=== PATIENT | female | born 1990 ===

== ENCOUNTER 2016-11-03 12:24 | Inpatient (IN) ==
--- NOTE | 2016-11-03 14:19 | Ultrasound Report ---
Biophysical profile. Indication: Small for gestational age. There is a single intrauterine gestation in a vertex presentation. The placenta is located anterior. The heart rate is 148 bpm. The YUSRA is 8.8 cm. breathing-2 Gross body movement-2 tone-2 Qualitative amniotic fluid volume-2 Score: 8/8, low risk for chronic asphyxia. The Ultrasound images were captured and stored. PROCEDURE INTERPRETED AT [facility] DEPARTMENT OF RADIOLOGY Final Report Signed by: Dr. Luzmaria Bautista
--- NOTE | 2016-11-03 15:45 | Ultrasound Report ---
Exam:US OB >= 14 weeks fetus Date:11/03/2016 2:23 PM Comparison: No previous obstetrical ultrasound available at this time Indication: Small for gestational age Findings: There is a single intrauterine fetus in vertex presentation with a heart rate of 141 bpm. The placenta is anterior without previa. The placenta is grade 3. The YUSRA measures a normal 8.3 cm. The maternal cervix measures 2.6 cm length and is grossly closed. Four-chamber heart view and stomach bubble are unremarkable. spine, kidneys, bladder, and cord insertion site are not optimally seen because of positioning and patient body habitus. There is a three-vessel umbilical cord. Intracranial measurements are not submitted. No masses of the maternal myometrium are identified. The maternal ovaries were not seen because of gestation size. The fetus measures less than the 3 percentile based on EFW. The femur length to BPD ratio is abnormally decreased at 62.88. The femur length to abdominal circumference ratio is abnormally decreased at 17.27. The femur length to head circumference ratio is decreased at 17.06. Impression: Single intrauterine fetus in vertex presentation with an ultrasound gestational age of 33 weeks 4 days +/- 16 days, CHAPARRITA December 18, 2016, and EFW 2211 g +/- 332 g. motion and cardiac activity are noted during real-time sonography. The patient measures less than the 3 percentile based on EFW. Biometry BPD:86.2 mm 34w 5d HC:317.6 mm 35w 5d AC:313.8 mm 35w 2d FL: 54.2 mm 28w 5d EFW:2211 +/- 332 g 33w 2d Amniotic Fluid Index:8.3 cm YUSRA: Q1 =1.9 cm YUSRA: Q2 =1.4 cm YUSRA: Q3 =1.3 cm YUSRA: Q4 =3.7 cm The Ultrasound images were captured and stored. PROCEDURE INTERPRETED AT [facility] DEPARTMENT OF RADIOLOGY Final Report Signed by: Dr. Carmel Trinidad
[2016-11-03 17:17] LABS: Basophils % 0.1 % (0.0-0.8); Eosinophils # 0.1 10*3/uL (0.0-0.87); Eosinophils % 0.6 % (0.00-10.9); Hematocrit 33.6 VOL% (35.7-47.0); Hemoglobin 11.3 GM/DL (12.0-16.0); Immature Granulocytes % 0.2 %; Immature Granulocytes Absolute 0.02 #; Lymphocytes # 1.6 10*3/uL (1.4-4.0); Lymphocytes % 18.9 % (21.3-54.2); Mean Corpuscular HGB Conc 33.6 GM/DL (32-36); Mean Corpuscular Hemoglobin 28 PG (27-34); Mean Platelet Volume 10.8 FL (9.6-12.0); Monocytes # 0.8 10*3/uL (0.11-0.8); Monocytes % 9.1 % (1.7-12.7); Neutrophils # 5.9 10*3/uL (1.4-7.4); Neutrophils % 71.1 % (38.7-73.9); Platelet Count 203 T/CUMM (130-400); Red Cell Distribution Width 14.4 % (9.3-17.3); White Blood Count 8.2 T/CUMM (4-12)
[2016-11-03 17:49] LABS: Albumin 2.6 G/DL (3.4-5.0); Bilirubin,Total 0.5 MG/DL (0.2-1.0); Calcium 8.3 MG/DL (8.5-10.1); Osmolality,Calculated 273.5 MOS/KG (273-304); Total Protein 6.9 G/DL (6.4-8.3)
[2016-11-03 18:15] LABS: Apearance,Urine CLEAR (Clear); Bilirubin,Urine Negative (Negative); Blood, Urine Negative (Negative); Glucose,Urine (UA) Negative (Negative); Ketones,Urine Negative (Negative); Nitrite,Urine Negative (Negative); Protein,Urine Negative; RBC,Urine 2 /HPF (0-4); Squamous Epithelial Cell,Urine Occasional /HPF (0-10); Urine Color Straw (Yellow); Urine Specific Gravity 1.004 (1.001-1.035); Urine Urobilinogen < 2.0 EU/DL (0.2-1.0); WBC,Urine 11 /HPF (0-6)
--- NOTE | 2016-11-03 18:30 | OB/GYN History & Physical ---
History of Present Illness Chief complaint: 37 weeks, IUGR History of present illness: Ms. Arriaza is a 26 year old female 2 para 1 early ultrasound demonstrated an EDC of 12/01/2016. Patient's had serial ultrasounds which have demonstrated decreasing fundal height. Ultrasound that was obtained today demonstrated a an estimated gestational age of 33 weeks and 4 days which is 3 weeks behind her estimated gestational age. There is also noted to be a placenta that demonstrated to be a grade 3. In light of these findings this patient be admitted for intrauterine growth retardation and induction in the a.m. Risks benefits were thoroughly discussed with this patient and her family. Home Medications Medication Instructions Recorded Confirmed Type Ferrous Sulfate Tab [Feosol 1 tablet PO DAILY 11/03/16 11/03/16 History Original Tab] No122/Iron/Folic Acid 1 tablet PO DAILY 11/03/16 11/03/16 History [ Multi Tablet] Allergies Allergy/AdvReac Type Severity Reaction Status Date / Time No Known Allergies Allergy Verified 11/03/16 12:44 Medical,Surgical,& Family Hx - Medical History Neurology: No history of: Seizures - Family History Family History: Reports;: Family Diabetes (MOM ET MATERNAL GR DAD), Family Hypertension (MAT GR DAD) - Social History Smoking Status: Never smoker Frequency of Alcohol Use: None Type of Drug Use: 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: Vital Signs Temp Pulse Resp BP Pulse Ox 11/03/16 16:30 98.1 F 76 20 118/84 98 - Head Head exam: Present: normal inspection - Eye Eye exam: Present: EOMI Pupils: Present: SERENITY - ENT ENT exam: Present: normal exam - Neck Neck exam: Present: normal inspection - Respiratory Respiratory exam: Present: clear to auscultation bilaterally - Breast Breasts: as per HPI Menstruation: as per HPI - Cardiovascular Cardiovascular exam: Present: regular rate and rhythm - GI/Abdominal GI/Abdominal exam: Present: other (Fundal height is measuring approximately 33- 34 cm,) - Extremities Exam Extremities exam: Present: normal inspection - Back Exam Back exam: Present: normal inspection - Neurological Exam Neurological exam: Present: alert - Psychiatric Psychiatric exam: Present: normal affect - Skin Skin exam: Present: normal color Assessment and Plan (1) IUGR (intrauterine growth restriction) Status: Acute Assessment and plan: Intrauterine growth retardation at 37 weeks. Patient is a lagging approximately 3 cm behind her estimated gestational age. We will plan on initiating on labor in the morning initially will start with IV Pitocin and then plan on initiating with prostaglandin gel risks and benefits were thoroughly discussed with this patient she is in full agreement Current Visit: Yes Results - Labs CBC & BMP: 11/03/16 17:05 11/03/16 17:05
[2016-11-03 18:40] LABS: HIV Antigen/Antibody Result Nonreactive (Nonreactive); Hepatitis B Surface Ag Quant < 0.10 Index; Hepatitis B Surface Ag Result Negative (Negative)
--- NOTE | 2016-11-04 09:24 | Event Note ---
HPI: Ms. Arriaza is a 26-year-old female who presented for evaluation of status. Ultrasound demonstrated IUGR. The patient has been admitted for induction of labor due to IUGR. She was received Prostin per protocol. Currently her cervix is 1 cm and thick. The risk and benefits of been thoroughly discussed with this patient and significant other, plan of care has been discussed with Dr. Henry and all parties are in agreement plan.
[2016-11-04] MEDS ORDERED: ONDANSETRON 4 MG/2 ML VIAL IV PRN (09:26)
[2016-11-04] MEDS ORDERED: DINOPROSTONE VAG GEL 10 MG SYRINGE VAG ONE ×3 (09:41→17:08)
[2016-11-04] MEDS: LACTATED RINGERS 1,000 ML IV SCH ×2 (09:46→16:06)
[2016-11-04] MEDS ORDERED: MEPERIDINE 50 MG/1 ML VIAL IV PRN (09:59)
[2016-11-04] MEDS: OXYTOCIN/LR 20 UNIT/1,000 ML BAG IV SCH (14:46)
[2016-11-04] MEDS ORDERED: AMPICILLIN INJ 2,000 MG in SODIUM CHLORIDE 0.9% 100 ML IV ONE (15:05)
[2016-11-04] MEDS: AMPICILLIN INJ 1,000 MG in SODIUM CHLORIDE 0.9% 100 ML IV SCH ×2 (19:41→23:40)
[2016-11-05 00:07] LABS: Barbiturates Screen,Urine Negative (Negative); Benzodiazepines Screen,Urine Negative (Negative); Opiate Screen,Urine Negative (Negative); Phencyclidine Screen,Urine Negative (Negative)
[2016-11-05 00:18] LABS: Cannabinoid Screen,Urine Negative (Negative)
[2016-11-05] MEDS: AMPICILLIN INJ 1,000 MG in SODIUM CHLORIDE 0.9% 100 ML IV SCH ×3 (03:30→11:30)
[2016-11-05] MEDS: LACTATED RINGERS 1,000 ML IV SCH (07:26)
[2016-11-05] MEDS ORDERED: FAMOTIDINE 20 MG/2 ML VIAL IV ONE (07:54)
[2016-11-05] MEDS ORDERED: fentaNYL 2 MCG/ROPIV 0.2% EPID 150 ML EPIDURAL SCH (07:54)
[2016-11-05] MEDS ORDERED: hydrOXYzine HCL 25 MG/1 ML VIAL IM PRN (07:54)
[2016-11-05] MEDS ORDERED: PROMETHAZINE 25 MG/1 ML VIAL IM ONE (07:54)
[2016-11-05] MEDS ORDERED: CITRIC ACID/SODIUM CITRATE 30 ML UDCUP PO ONE (07:54)
[2016-11-05] MEDS ORDERED: diphenhydrAMINE 50 MG/1 ML VIAL IV PRN ×2 (07:54)
[2016-11-05] MEDS ORDERED: ONDANSETRON 4 MG/2 ML VIAL IV ONE (07:54)
[2016-11-05] MEDS ORDERED: ePHEDrine 50 MG/ML AMP IV PRN (07:54)
--- NOTE | 2016-11-05 09:14 | Ultrasound Report ---
Limited OB ultrasound. Indication: Indication: Confirm presentation. There is a single intrauterine gestation in a cephalic presentation. The placenta is located anterior. The amniotic fluid volume is normal. The heart rate is 130 bpm. Impression: Cephalic presentation. The Ultrasound images were captured and stored. PROCEDURE INTERPRETED AT [facility] DEPARTMENT OF RADIOLOGY Final Report Signed by: Dr. Luzmaria Bautista
[2016-11-05] MEDS ORDERED: BUTORPHANOL 1 MG/ML VIAL ONE (09:38)
[2016-11-05] MEDS ORDERED: BUTORPHANOL 1 MG/ML VIAL IV PRN (09:41)
--- NOTE | 2016-11-05 13:38 | Event Note ---
Delivery note Stage I of labor Artificial rupture membranes on the Patient admitted on the with a diagnosis of IUGR at 37 weeks She received prostaglandin gel on the twice without significant dilatation of her cervix. IV Pitocin Intrauterine pressure catheter Epidural anesthetic heart tones category 1 Stage II Delivery of a female at 1208 Cord blood and cord gas obtained Blood loss 200 cc nurses present in attendance Stage III Placenta delivered without any problems 3 cord vessels Blood loss is 200 cc nursery was present at the time of delivery Mother stable
[2016-11-05] MEDS: OXYTOCIN/LR 20 UNIT/1,000 ML BAG IV SCH (16:21)
[2016-11-05] MEDS: DOCUSATE SODIUM 100 MG CAPSULE PO SCH (20:53)
[2016-11-05] MEDS: IBUPROFEN 800 MG TABLET PO PRN (20:53)
[2016-11-06 06:48] LABS: Basophils % 0.2 % (0.0-0.8); Eosinophils # 0.1 10*3/uL (0.0-0.87); Eosinophils % 0.9 % (0.00-10.9); Hematocrit 29.9 VOL% (35.7-47.0); Hemoglobin 9.8 GM/DL (12.0-16.0); Immature Granulocytes % 0.3 %; Immature Granulocytes Absolute 0.03 #; Lymphocytes # 1.8 10*3/uL (1.4-4.0); Lymphocytes % 20.4 % (21.3-54.2); Mean Corpuscular HGB Conc 32.8 GM/DL (32-36); Mean Corpuscular Hemoglobin 28 PG (27-34); Mean Corpuscular Volume 84.2 FL (87-102); Mean Platelet Volume 10.2 FL (9.6-12.0); Monocytes # 0.9 10*3/uL (0.11-0.8); Monocytes % 10.1 % (1.7-12.7); Neutrophils # 6.1 10*3/uL (1.4-7.4); Neutrophils % 68.1 % (38.7-73.9); Platelet Count 173 T/CUMM (130-400); Red Blood Count 3.55 MC/CUMM (3.8-5.5); Red Cell Distribution Width 14.3 % (9.3-17.3); White Blood Count 8.9 T/CUMM (4-12)
--- NOTE | 2016-11-06 08:34 | OB/GYN Progress Note ---
Assessment and Plan (1) Vaginal delivery Status: Acute Assessment and plan: Initiate routine orders. 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 Bonding well with infant. 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 - Constitutional Vitals: Vital Signs Temp Pulse Resp BP Pulse Ox 11/06/16 07:56 74 20 11/06/16 07:33 98.1 F 74 20 109/72 98 11/06/16 06:59 18 11/06/16 06:00 18 11/06/16 05:00 16 11/06/16 03:30 97.1 F L 70 20 89/61 96 11/06/16 03:00 18 11/06/16 02:00 20 11/05/16 23:40 98.1 F 78 24 110/72 98 11/05/16 19:20 97.7 F 94 H 22 106/60 98 11/05/16 17:30 98.0 F 84 20 122/70 98 11/05/16 16:30 98.0 F 80 20 122/77 98 11/05/16 15:30 97.8 F 77 20 119/78 98 11/05/16 15:00 97.9 F 77 20 120/79 98 11/05/16 14:30 97.9 F 81 20 115/78 98 General appearance: no acute distress - Antepartum / Post Post Exam Breast: bilateral: normal Abdomen obstetrics: Present: bowel sounds normal Vagina: Present: normal moisture, discharge (Light lochia rubra) Uterus exam: Present: enlarged (Fundus firm and midline) Anus/Rectum: Present: normal perianal skin - Head Head exam: Present: normal inspection - Respiratory Respiratory exam: Present: clear to auscultation bilaterally - Cardiovascular Cardiovascular exam: Present: regular rate and rhythm - GI/Abdominal GI/Abdominal exam: Present: normal bowel sounds - Extremities Exam Extremities exam: Present: normal inspection - Neurological Exam Neurological exam: Present: alert, oriented X3 - Psychiatric Psychiatric exam: Present: normal affect, normal mood - Skin Skin exam: Present: normal color, warm Results - Labs CBC & BMP: 11/06/16 06:35 11/03/16 17:05
[2016-11-06] MEDS: FERROUS SULFATE 325 MG TABLET PO SCH ×2 (08:43→21:25)
[2016-11-06] MEDS: DOCUSATE SODIUM 100 MG CAPSULE PO SCH ×2 (08:43→21:25)
--- NOTE | 2016-11-07 06:49 | Anesthesia Post-Op ---
Anesthesia Post OP - Post Ansesthetic Evaluation Patient seen in post op: Yes Resp: within normal limits CV: within normal limits Mental: within normal limits Temp: within normal limits [id number]: within normal limits Nausea and Vomiting: within normal limits Pain: within normal limits
[2016-11-07 07:23] VITALS: BP 106/69
[2016-11-07] MEDS: DOCUSATE SODIUM 100 MG CAPSULE PO SCH (09:01)
[2016-11-07] MEDS: FERROUS SULFATE 325 MG TABLET PO SCH (09:01)
[2016-11-07] MEDS: IBUPROFEN 800 MG TABLET PO PRN (09:01)
--- NOTE | 2016-11-07 10:27 | Discharge Summary ---
Hospital Course - Hospital Course Hospital Course: Ms. Arriaza presented to the labor department for elective induction of labor due to term . She subsequently delivered a viable with no complications. She has followed a normal course and she has done well. Her bleeding is minimal with no odor. Her vital signs and lab values are stable. Her perineum is intact with no edema. She is bonding well with her . Contraception options has been discussed and the patient will decide on a method at her visit. She will be discharged home with prescriptions for pain and a follow-up appointment in our office. Diagnosis - Discharge Diagnosis (1) Vaginal delivery Status: Acute Specialty Discharge - Follow Up or Referrals Follow up with: María Elena Henry MD [Physician] - (Follow-up in 6 weeks. ) Discharge Plan - Discharge Data Disposition: Disch To Home/Self Care Condition at Discharge: Stable Discharge Diet: advance to your usual diet, regular diet Activity: resume usual activities as tolerated Hygiene: no restrictions Weight Bearing at Discharge: weight bear as tolerated Driving: no restrictions Contact your physician if you experience:: fever over 101, pain uncontrolled by pain medications - Discharge Medications New Ferrous Sulfate Tab [Feosol Original Tab] 325 mg PO BID #60 tablet HYDROcodone/ACETAMIN 5-325 [Daggett 5-325] 2 tablet PO Q6H PRN #30 tablet PRN Reason: Pain Moderate (4-7) Ibuprofen Tab [Motrin Tab] 800 mg PO Q8H PRN #30 tablet PRN Reason: Pain Clindamycin Cap [Cleocin Cap] 300 mg PO Q8HR #30 capsule No Action No122/Iron/Folic Acid [ Multi Tablet] 1 tablet PO DAILY Ferrous Sulfate Tab [Feosol Original Tab] 1 tablet PO DAILY - Follow Up or Referral - Forms/Instructions Exam - Constitutional Vitals: Period Temp Pulse Resp BP Sys/Rizvi Pulse Ox Last 24 Hr 97.7 F-99.3 F 61-77 18-20 97-115/56-73 97-99 General appearance: no acute distress - Respiratory Respiratory exam: Present: clear to auscultation bilaterally - Cardiovascular Cardiovascular exam: Present: regular rate and rhythm - GI/Abdominal GI/Abdominal exam: Present: normal bowel sounds - Extremities Exam Extremities exam: Present: normal inspection - Neurological Exam Neurological exam: Present: alert, oriented X3 - Psychiatric Psychiatric exam: Present: normal affect, normal mood - Skin Skin exam: Present: normal color, warm DS: Provider Date of admission: 11/04/16 09:26 Primary care physician: Nella Xie MD Attending physician on admission: María Elena Henry MD Consults: 11/04/16 09:26 Consult to Anesthesiology [CONS] Routine Consulting Provider: Reason for Anesthesiology: Epidural Consult Comment: Epidural for pain managment Discharging clinician: Monse Bear CNM Expected date of discharge: 11/07/16
--- NOTE | 2016-11-07 18:21 | Pathology Report from [facility] ---
[employer] ACCESSION # : [id number] PATIENT NAME : Sheryl Arriaza ORDERING DR : MAGALYS FLEMING MD CLINICAL HX: IUP @ 37.2 weeks, spontaneous vaginal delivery, IUGR, grade 3 placenta POST-OP DX: sSame SPECIMEN INFO: Placenta GROSS DESCRIPTION: The specimen is received fresh labeled SHERYL ARRIAZA consists of a 358.0 gm placenta which measures 17.0 x 16.0 x 2.3 cm. The membranes are rowe and translucent. The umbilical cord measures 17.5 cm, contains three vessels and is eccentrically inserted. The surface is blue -verma and intact. The maternal surface displays intact hemorrhagic cotyledons. No abnormalities grossly appreciated upon sectioning. Sections submitted: (A ) membranes and cord, (B) and maternal surfaces. DIAGNOSIS FOR SHERYL ARRIAZA: PLACENTA, MEMBRANES, UMBILICAL CORD: Focal placental infarction with dystrophic calcification, moderate intravillous blood. Tri-vessel umbilical cord, eccentrically inserted. Membranes with acute and chronic inflammation. COLLECTED DATE: 11/06/2016 [facility] REPORT DATE: 11/07/2016 ELECTRONICALLY SIGNED BY: Esther Rosales M.D. 11/07/2016 - 10:18:00 ANCELMO
== END 2016-11-07 12:00 | disposition home or self-care (01) | DRG 560 ==
LOC: N.LDOUT 12:24 → N.LD 12:30 → N.OB 16:32 → N.LD 11-04 09:23 → N.OB 11-05 14:00
PROVIDERS: ADMIT Obstetrics & Gynecology; ATTEND Obstetrics & Gynecology

== ENCOUNTER 2018-02-22 20:22 | Inpatient (IN) ==
[2018-02-22] MEDS ORDERED: BUTORPHANOL 2 MG/ML VIAL IV PRN (20:47)
[2018-02-22] MEDS ORDERED: MEPERIDINE 50 MG/1 ML VIAL IV PRN (20:47)
[2018-02-22] MEDS ORDERED: ONDANSETRON 4 MG/2 ML VIAL IV PRN (20:47)
[2018-02-22] MEDS: LACTATED RINGERS 1,000 ML IV SCH ×2 (21:04→22:30)
[2018-02-22 21:14] LABS: Basophils % 0.3 % (0.0-0.8); Eosinophils # 0.1 10*3/uL (0.0-0.87); Eosinophils % 0.9 % (0.00-10.9); Hematocrit 32.5 VOL% (35.7-47.0); Hemoglobin 9.9 GM/DL (12.0-16.0); Immature Granulocytes % 0.5 %; Immature Granulocytes Absolute 0.05 #; Lymphocytes # 1.4 10*3/uL (1.4-4.0); Lymphocytes % 13.9 % (21.3-54.2); Mean Corpuscular HGB Conc 30.5 GM/DL (32-36); Mean Corpuscular Hemoglobin 24 PG (27-34); Mean Corpuscular Volume 78.7 FL (87-102); Mean Platelet Volume 10.5 FL (9.6-12.0); Monocytes # 0.8 10*3/uL (0.11-0.8); Monocytes % 7.9 % (1.7-12.7); Neutrophils # 7.7 10*3/uL (1.4-7.4); Neutrophils % 76.5 % (38.7-73.9); Platelet Count 218 T/CUMM (130-400); Red Blood Count 4.13 MC/CUMM (3.8-5.5)
[2018-02-22] MEDS ORDERED: CLINDAMYCIN INJ 900 MG in PREMIX 1 EACH IV SCH (21:30)
[2018-02-22] MEDS ORDERED: FAMOTIDINE 20 MG/2 ML VIAL IV ONE (21:33)
[2018-02-22] MEDS ORDERED: CITRIC ACID/SODIUM CITRATE 30 ML UDCUP PO ONE (21:33)
[2018-02-22 21:36] LABS: Alanine Aminotransferase 11 U/L (13-56); Albumin 2.4 G/DL (3.4-5.0); Alkaline Phosphatase 320 U/L (45-117); Aspartate Amino Transferase 18 U/L (0-37); Bilirubin,Total < 0.39 MG/DL (0.2-1.0); Blood Urea Nitrogen 10 MG/DL (7-18); Calcium 8.1 MG/DL (8.5-10.1); Glucose 83 MG/DL (74-106); Osmolality,Calculated 276.4 MOS/KG (273-304); Potassium 3.6 MMOL/L (3.5-5.1); Sodium 140 MMOL/L (136-145); Total Protein 7.6 G/DL (6.4-8.3)
[2018-02-22] MEDS ORDERED: ePHEDrine 50 MG/ML AMP ONE (21:40)
[2018-02-22] MEDS ORDERED: fentaNYL 2 MCG/ROPIV 0.2% EPID 100 ML EPIDURAL SCH (22:00)
[2018-02-22 22:05] LABS: Apearance,Urine Slightly Hazy (Clear); Bacteria,Urine Occasional /HPF (Few); Bilirubin,Urine Negative (Negative); Blood, Urine Large mg/dL (Negative); Glucose,Urine (UA) Negative (Negative); Ketones,Urine Negative (Negative); Mucus,Urine Occasional /LPF (Occasional); Nitrite,Urine Negative (Negative); Protein,Urine Negative; RBC,Urine 2 /HPF (0-4); Squamous Epithelial Cell,Urine Occasional /HPF (0-10); Urine Color Yellow (Yellow); Urine Specific Gravity 1.009 (1.001-1.035); WBC,Urine 55 /HPF (0-6)
[2018-02-22] MEDS ORDERED: miSOPROStol 200 MCG TABLET ONE (22:22)
[2018-02-22] MEDS ORDERED: LIDOCAINE 1% 50 ML VIAL ONE (22:22)
[2018-02-22] MEDS: OXYTOCIN/LR 20 UNIT/1,000 ML BAG IV SCH (23:30)
[2018-02-23 05:56] LABS: Apearance,Urine CLEAR (Clear); Bilirubin,Urine Negative (Negative); Blood, Urine Small mg/dL (Negative); Glucose,Urine (UA) Negative (Negative); Ketones,Urine 5 mg/dL (Negative); Mucus,Urine Occasional /LPF (Occasional); Nitrite,Urine Negative (Negative); Protein,Urine Negative; RBC,Urine 4 /HPF (0-4); Squamous Epithelial Cell,Urine Occasional /HPF (0-10); Urine Color Yellow (Yellow); Urine Specific Gravity 1.013 (1.001-1.035); WBC,Urine 7 /HPF (0-6)
[2018-02-23] MEDS ORDERED: CARBOPROST TROMETHAMINE 250 MCG/ML AMP IM ONE (06:55)
[2018-02-23] MEDS ORDERED: METHYLERGONOVINE 0.2 MG/1 ML AMP ONE ×2 (06:55→07:24)
[2018-02-23] MEDS ORDERED: BISACODYL 10 MG SUPP RECTAL PRN (07:30)
[2018-02-23] MEDS ORDERED: oxyCODONE/ACETAMINOPHEN 5-325 MG TABLET PO PRN (07:30)
[2018-02-23] MEDS ORDERED: HYDROCORTISONE 2.5% RECTAL CREAM 30 GM TUBE TOP PRN (07:30)
[2018-02-23] MEDS ORDERED: WITCH HAZEL PADS 100/JAR TOP PRN (07:30)
[2018-02-23] MEDS ORDERED: ACETAMINOPHEN 325 MG TABLET PO PRN (07:30)
[2018-02-23] MEDS ORDERED: BENZOCAINE 20%/MENTHOL 0.5% SPRAY 56 GM CAN TOP PRN (07:30)
[2018-02-23] MEDS ORDERED: LANOLIN 50% CREAM 0.3 OZ TUBE TOP PRN (07:30)
[2018-02-23] MEDS ORDERED: RHO(D) IMMUNE GLOBULIN 300 MCG SYRINGE IM ONE (08:00)
[2018-02-23] MEDS ORDERED: DIPH/TET/ACEL PERT BOOSTER VACCINE 0.5 ML VIAL IM ONE (08:00)
[2018-02-23] MEDS ORDERED: MEASLES/MUMPS/RUBELLA VACCINE 0.5 ML VIAL SUBCUT ONE (08:00)
[2018-02-23] MEDS ORDERED: METHYLERGONOVINE 0.2 MG/1 ML AMP IM ONE (08:51)
[2018-02-23] MEDS: OXYTOCIN/LR 20 UNIT/1,000 ML BAG IV SCH (10:45)
[2018-02-23] MEDS: IBUPROFEN 800 MG TABLET PO PRN (16:19)
[2018-02-23] MEDS: oxyCODONE/ACETAMINOPHEN 5-325 MG TABLET PO PRN (16:20)
[2018-02-23] MEDS: DOCUSATE SODIUM 100 MG CAPSULE PO SCH (20:37)
[2018-02-24] MEDS: IBUPROFEN 800 MG TABLET PO PRN ×2 (01:58→19:17)
[2018-02-24 06:17] LABS: Basophils % 0.2 % (0.0-0.8); Eosinophils # 0.2 10*3/uL (0.0-0.87); Eosinophils % 1.4 % (0.00-10.9); Hematocrit 23.2 VOL% (35.7-47.0); Hemoglobin 6.9 GM/DL (12.0-16.0); Immature Granulocytes % 0.8 %; Lymphocytes # 2.3 10*3/uL (1.4-4.0); Lymphocytes % 17.2 % (21.3-54.2); Mean Corpuscular HGB Conc 29.7 GM/DL (32-36); Mean Corpuscular Hemoglobin 24 PG (27-34); Mean Corpuscular Volume 81.4 FL (87-102); Mean Platelet Volume 10.7 FL (9.6-12.0); Monocytes # 1.1 10*3/uL (0.11-0.8); Monocytes % 8.4 % (1.7-12.7); Neutrophils # 9.5 10*3/uL (1.4-7.4); Platelet Count 157 T/CUMM (130-400); Red Blood Count 2.85 MC/CUMM (3.8-5.5); Red Cell Distribution Width 18.1 % (9.3-17.3); White Blood Count 13.2 T/CUMM (4-12)
[2018-02-24] MEDS: FERROUS SULFATE 325 MG TABLET PO SCH ×2 (08:53→20:44)
[2018-02-24] MEDS: DOCUSATE SODIUM 100 MG CAPSULE PO SCH ×2 (08:53→20:44)
[2018-02-24] MEDS: oxyCODONE/ACETAMINOPHEN 5-325 MG TABLET PO PRN (11:13)
[2018-02-25 07:14] VITALS: BP 96/64
[2018-02-25] MEDS: DOCUSATE SODIUM 100 MG CAPSULE PO SCH (08:52)
[2018-02-25] MEDS: FERROUS SULFATE 325 MG TABLET PO SCH (08:52)
== END 2018-02-25 13:20 | disposition home or self-care (01) | DRG 560 ==
LOC: N.LDOUT 20:22 → N.LD 20:28 → N.OB 02-23 10:23
PROVIDERS: ADMIT Obstetrics & Gynecology; ATTEND Obstetrics & Gynecology

== ENCOUNTER 2019-10-01 21:40 | Observation (INO) ==
[2019-10-01] MEDS ORDERED: SODIUM CHLORIDE 0.9% 1,000 ML IV STA (22:06)
[2019-10-01 23:45] LABS: Basophils % 0.2 % (0.0-0.8); Eosinophils % 0.1 % (0.00-10.9); Hematocrit 32.8 VOL% (35.7-47.0); Immature Granulocytes % 0.3 %; Immature Granulocytes Absolute 0.04 #; Lymphocytes # 0.9 10*3/uL (1.4-4.0); Mean Corpuscular HGB Conc 33.5 GM/DL (32-36); Mean Corpuscular Volume 87.2 FL (87-102); Mean Platelet Volume 9.9 FL (9.6-12.0); Monocytes % 7.1 % (1.7-12.7); Neutrophils % 85.3 % (38.7-73.9); Platelet Count 221 T/CUMM (130-400); Red Blood Count 3.76 MC/CUMM (3.8-5.5); Red Cell Distribution Width 13.1 % (9.3-17.3)
[2019-10-02 00:02] LABS: Apearance,Urine Slightly Hazy (Clear); Bilirubin,Urine Negative (Negative); Blood, Urine Small mg/dL (Negative); Glucose,Urine (UA) Negative (Negative); Ketones,Urine 80 mg/dL (Negative); Mucus,Urine Occasional /LPF (Occasional); Nitrite,Urine Negative (Negative); Protein,Urine Negative; RBC,Urine 1 /HPF (0-4); Renal Epithelial Cells,Urine Occasional /HPF (<1); Squamous Epithelial Cell,Urine Few /HPF (0-10); Urine Color Yellow (Yellow); Urine Specific Gravity 1.017 (1.001-1.035); Urine Urobilinogen < 2.0 EU/DL (0.2-1.0); WBC,Urine 24 /HPF (0-6)
[2019-10-02 00:11] LABS: Albumin 2.7 G/DL (3.4-5.0); Bilirubin,Total 0.4 MG/DL (0.2-1.0); Osmolality,Calculated 274.5 MOS/KG (273-304); Total Protein 6.8 G/DL (6.4-8.3)
[2019-10-02] MEDS ORDERED: MEPERIDINE 50 MG/1 ML VIAL IV STA (00:49)
[2019-10-02] MEDS ORDERED: cefTRIAXone 1,000 MG in SODIUM CHLORIDE 0.9% 100 ML IV STA (00:52)
[2019-10-02] MEDS ORDERED: ACETAMINOPHEN 325 MG TABLET PO PRN (00:54)
[2019-10-02] MEDS ORDERED: ONDANSETRON 4 MG/2 ML VIAL IV PRN (00:54)
[2019-10-02] MEDS: FAMOTIDINE 20 MG/2 ML VIAL IV SCH ×2 (02:10→13:44)
[2019-10-02] MEDS: LACTATED RINGERS 1,000 ML IV SCH ×4 (02:15→23:32)
[2019-10-02 06:31] LABS: Basophils % 0.3 % (0.0-0.8); Eosinophils % 0.2 % (0.00-10.9); Hematocrit 31.8 VOL% (35.7-47.0); Hemoglobin 10.5 GM/DL (12.0-16.0); Immature Granulocytes % 0.7 %; Immature Granulocytes Absolute 0.08 #; Lymphocytes # 0.9 10*3/uL (1.4-4.0); Lymphocytes % 8.7 % (21.3-54.2); Mean Corpuscular Volume 88.1 FL (87-102); Mean Platelet Volume 10.2 FL (9.6-12.0); Monocytes % 9.8 % (1.7-12.7); Neutrophils % 80.3 % (38.7-73.9); Platelet Count 215 T/CUMM (130-400); Red Blood Count 3.61 MC/CUMM (3.8-5.5); Red Cell Distribution Width 13.1 % (9.3-17.3); White Blood Count 10.8 T/CUMM (4-12)
[2019-10-02 06:38] LABS: Albumin 2.4 G/DL (3.4-5.0); Bilirubin,Total 0.9 MG/DL (0.2-1.0); Calcium 7.4 MG/DL (8.5-10.1); Osmolality,Calculated 274.5 MOS/KG (273-304); Total Protein 6.2 G/DL (6.4-8.3)
[2019-10-02] MEDS: MEPERIDINE 25 MG/1 ML VIAL IV PRN ×2 (07:23→19:42)
[2019-10-02] MEDS ORDERED: LACTATED RINGERS 1,000 ML IV ONE (07:45)
[2019-10-02] MEDS ORDERED: LACTATED RINGERS 500 ML IV ONE (13:57)
[2019-10-02] MEDS ORDERED: cefTRIAXone 1,000 MG in SYRINGE 1 EACH IV SCH (14:00)
[2019-10-03] MEDS: FAMOTIDINE 20 MG/2 ML VIAL IV SCH ×2 (01:48→16:40)
[2019-10-03] MEDS: LACTATED RINGERS 1,000 ML IV SCH ×2 (05:59→14:01)
[2019-10-03 11:30] VITALS: BP 115/63
== END 2019-10-03 18:20 | disposition home or self-care (01) ==
LOC: EDBD → EDUNIT# → N.ED 21:40 → N.EDINP 21:40 → N.OB 10-02 03:00
PROVIDERS: ADMIT Obstetrics & Gynecology; ATTEND Obstetrics & Gynecology

== ENCOUNTER 2020-02-26 12:07 | Inpatient (IN) ==
[2020-02-26] MEDS: LACTATED RINGERS 1,000 ML IV SCH (14:05)
[2020-02-26] MEDS ORDERED: ONDANSETRON 4 MG/2 ML VIAL IV PRN (14:22)
[2020-02-26] MEDS ORDERED: MEPERIDINE 50 MG/1 ML VIAL IV PRN (14:22)
[2020-02-26] MEDS ORDERED: BUTORPHANOL 2 MG/ML VIAL IV PRN (14:22)
[2020-02-26 14:40] LABS: Basophils % 0.5 % (0.0-0.8); Eosinophils # 0.1 10*3/uL (0.0-0.87); Hematocrit 30.7 VOL% (35.7-47.0); Hemoglobin 9.5 GM/DL (12.0-16.0); Immature Granulocytes % 0.7 %; Immature Granulocytes Absolute 0.06 #; Lymphocytes # 1.3 10*3/uL (1.4-4.0); Lymphocytes % 15.3 % (21.3-54.2); Mean Corpuscular HGB Conc 30.9 GM/DL (32-36); Mean Corpuscular Volume 75.2 FL (87-102); Mean Platelet Volume 9.6 FL (9.6-12.0); Monocytes % 9.3 % (1.7-12.7); NRBC # 0.02 10*3/uL; Neutrophils % 73.2 % (38.7-73.9); Platelet Count 243 T/CUMM (130-400); Red Blood Count 4.08 MC/CUMM (3.8-5.5); Red Cell Distribution Width 17.2 % (9.3-17.3); White Blood Count 8.7 T/CUMM (4-12)
[2020-02-26 14:59] LABS: Albumin 2.3 G/DL (3.4-5.0); Bilirubin,Total 0.4 MG/DL (0.2-1.0); Osmolality,Calculated 275.5 MOS/KG (273-304); Uric Acid 4.7 MG/DL (2.6-6.0)
[2020-02-26] MEDS: CLINDAMYCIN INJ 900 MG in PREMIX 1 EACH IV SCH (19:45)
[2020-02-27] MEDS: LACTATED RINGERS 1,000 ML IV SCH ×2 (02:30→07:44)
[2020-02-27] MEDS ORDERED: ePHEDrine 50 MG/ML VIAL IV PRN (03:41)
[2020-02-27] MEDS ORDERED: NALOXONE 0.4 MG/ML VIAL IV PRN (03:41)
[2020-02-27] MEDS ORDERED: PROMETHAZINE 25 MG/1 ML VIAL IM ONE (03:41)
[2020-02-27] MEDS ORDERED: CITRIC ACID/SODIUM CITRATE 30 ML UDCUP PO ONE (03:43)
[2020-02-27] MEDS ORDERED: FAMOTIDINE 20 MG/2 ML VIAL IV ONE ×2 (03:43)
[2020-02-27] MEDS ORDERED: CITRIC ACID/SODIUM CITRATE 30 ML UDCUP ONE (03:43)
[2020-02-27] MEDS: CLINDAMYCIN INJ 900 MG in PREMIX 1 EACH IV SCH (03:45)
[2020-02-27] MEDS ORDERED: OXYTOCIN/LR 20 UNIT/1,000 ML BAG IV SCH (04:00)
[2020-02-27] MEDS ORDERED: fentaNYL 2 MCG/ROPIV 0.2% EPID 100 ML EPIDURAL SCH (04:00)
[2020-02-27] MEDS ORDERED: METHYLERGONOVINE 0.2 MG/1 ML AMP ONE (08:56)
[2020-02-27] MEDS ORDERED: miSOPROStoL 200 MCG TABLET ONE (08:56)
[2020-02-27 09:35] LABS: Cord Arterial Blood HCO3 17.7 MMOL/L
[2020-02-27 09:38] LABS: Cord Venous Blood HCO3 23.1 MMOL/L; Cord Venous Blood PCO2 48.6 MMHG; Cord Venous Blood PO2 19.9 MMHG
[2020-02-27] MEDS ORDERED: DIPH/TET/ACEL PERT BOOSTER VACCINE 0.5 ML VIAL IM ONE (13:59)
[2020-02-27] MEDS ORDERED: WITCH HAZEL PADS 100/JAR TOP PRN (13:59)
[2020-02-27] MEDS ORDERED: MEASLES/MUMPS/RUBELLA VACCINE 0.5 ML VIAL SUBCUT ONE (13:59)
[2020-02-27] MEDS ORDERED: BENZOCAINE 20%/MENTHOL 0.5% SPRAY 56 GM CAN TOP PRN (13:59)
[2020-02-27] MEDS ORDERED: RHO(D) IMMUNE GLOBULIN 300 MCG SYRINGE IM ONE (13:59)
[2020-02-27] MEDS ORDERED: HYDROCORTISONE 2.5% RECTAL CREAM 30 GM TUBE TOP PRN (13:59)
[2020-02-27] MEDS ORDERED: OXYTOCIN/LR 20 UNIT/1,000 ML BAG IV ONE (13:59)
[2020-02-27] MEDS ORDERED: LANOLIN 50% CREAM 0.3 OZ TUBE TOP PRN (13:59)
[2020-02-27] MEDS ORDERED: BISACODYL 10 MG SUPP RECTAL PRN (13:59)
[2020-02-27] MEDS ORDERED: oxyCODONE/ACETAMINOPHEN 5-325 MG TABLET PO PRN ×2 (13:59)
[2020-02-27] MEDS ORDERED: ACETAMINOPHEN 325 MG TABLET PO PRN (13:59)
[2020-02-27] MEDS: IBUPROFEN 800 MG TABLET PO PRN (19:20)
[2020-02-27] MEDS: DOCUSATE SODIUM 100 MG CAPSULE PO SCH (19:21)
[2020-02-27] MEDS: POTASSIUM CHLORIDE 20 MEQ TABLET PO PRN ×2 (21:09→23:31)
[2020-02-27] MEDS: FERROUS SULFATE 325 MG TABLET PO SCH (21:09)
[2020-02-28] MEDS: DOCUSATE SODIUM 100 MG CAPSULE PO SCH ×3 (00:55→21:27)
[2020-02-28] MEDS: POTASSIUM CHLORIDE 20 MEQ TABLET PO PRN ×2 (01:23→03:25)
[2020-02-28] MEDS: IBUPROFEN 800 MG TABLET PO PRN ×2 (03:25→21:28)
[2020-02-28 05:28] LABS: Basophils % 0.3 % (0.0-0.8); Eosinophils # 0.2 10*3/uL (0.0-0.87); Eosinophils % 2.5 % (0.00-10.9); Hematocrit 27.8 VOL% (35.7-47.0); Hemoglobin 8.4 GM/DL (12.0-16.0); Immature Granulocytes % 0.5 %; Immature Granulocytes Absolute 0.05 #; Lymphocytes # 2.4 10*3/uL (1.4-4.0); Lymphocytes % 25.7 % (21.3-54.2); Mean Corpuscular HGB Conc 30.2 GM/DL (32-36); Mean Platelet Volume 10.4 FL (9.6-12.0); NRBC # 0.02 10*3/uL; Platelet Count 195 T/CUMM (130-400); Red Blood Count 3.61 MC/CUMM (3.8-5.5); Red Cell Distribution Width 17.5 % (9.3-17.3); White Blood Count 9.4 T/CUMM (4-12)
[2020-02-28] MEDS: FERROUS SULFATE 325 MG TABLET PO SCH ×2 (08:55→21:28)
[2020-02-29 08:02] VITALS: BP 98/63
[2020-02-29] MEDS: FERROUS SULFATE 325 MG TABLET PO SCH (10:47)
[2020-02-29] MEDS: DOCUSATE SODIUM 100 MG CAPSULE PO SCH (10:47)
== END 2020-02-29 11:45 | disposition home or self-care (01) | DRG 560 ==
LOC: N.LDOUT 12:07 → N.LD 13:22 → N.OB 02-27 13:22
PROVIDERS: ADMIT Obstetrics & Gynecology; ATTEND Obstetrics & Gynecology